=== PATIENT | male | born 1985 | race Caucasian/White ===

== ENCOUNTER 2017-11-27 06:59 | Day surgery (SDC) | payer BC ==
[~2017-11-27] VITALS: Ht 185.4 cm; Wt 85.9 kg
[2017-11-27 07:19] VITALS: BP 116/87; PULSE 67; TEMP 97.1
[2017-11-27 09:15] VITALS: BP 111/69; PULSE 65; TEMP 98.3
[2017-11-27 09:30] VITALS: BP 106/67; PULSE 59
[2017-11-27 09:45] VITALS: BP 101/69; PULSE 58
[2017-11-27 13:59] VITALS: BP 107/61; PULSE 49
== END 2017-11-27 09:50 | disposition home or self-care (01) ==
LOC: SDCO 06:59
DX: K29.30 Chronic superficial gastritis without bleeding (principal); K63.89 Other specified diseases of intestine; K21.0 Gastro-esophageal reflux disease with esophagitis; K59.00 Constipation, unspecified; K52.9 Noninfective gastroenteritis and colitis, unspecified; Z79.51 Long term (current) use of inhaled steroids
CPT/HCPCS: J2250; J2405; J3010; J7030